=== PATIENT | male | born 1960 | race Caucasian/White ===

== ENCOUNTER 2020-10-18 03:15 | Observation (INO) ==
[2020-10-18] MEDS: Levalbuterol Neb 1.25 MG/3 ML IH SCH ×3 (09:28→22:13)
[2020-10-18] MEDS ORDERED: Perflutren Lipid Microsphere 1.3 ML in 0.9 % Sodium Chloride 8.7 ML IVP PRN (10:39)
[2020-10-18] MEDS ORDERED: Ondansetron 4 MG/2 ML VIAL IVP PRN (10:40)
[2020-10-18] MEDS ORDERED: Naloxone 0.4 MG/ML INJ IVP PRN (10:40)
[2020-10-18] MEDS ORDERED: *HR* Metoprolol 5 MG/5 ML VIAL IVP PRN (10:44)
[2020-10-18] MEDS ORDERED: Isovue-370 500 ML BOTTLE IVP ONE (11:06)
[2020-10-18] MEDS ORDERED: carvediloL 6.25 MG TABLET PO ONE (11:09)
[2020-10-18] MEDS ORDERED: *HR* LORazepam 0.5 MG TABLET PO PRN (11:17)
[2020-10-18 12:14] LABS: BUN/Creatinine Ratio 19 (6-26); Blood Urea Nitrogen 15 mg/dL (8-23); Calcium 9.4 mg/dL (8.6-10.3); Carbon Dioxide 25 mEq/L (23-29); Chloride 106 mEq/L (98-107); Glucose 184 mg/dL (70-105); Osmolality,Calculated 292 (280-300); Potassium 4.2 mEq/L (3.5-5.1); Sodium 138 mEq/L (136-145); Troponin I < 0.03 ng/mL (< 0.04); eGFR For African Americans > 60 (> 60); eGFR For Non-African Americans > 60 (> 60)
[2020-10-18 13:32] LABS: Adenovirus Not Detected (Not Detect); Bordetella Pertussis Not Detected (Not Detect); Chlamydophila pneumoniae Not Detected (Not Detect); Coronavirus 229E Not Detected (Not Detect); Coronavirus HKU1 Not Detected (Not Detect); Coronavirus NL63 Not Detected (Not Detect); Coronavirus OC43 Not Detected (Not Detect); Human Metapneumovirus Not Detected (Not Detect); Human Rhinovirus/Enterovirus Not Detected (Not Detect); Influenza A Subtype 2009 H1 Not Detected (Not Detect); Influenza B Not Detected (Not Detect); Mycoplasma pneumoniae Not Detected (Not Detect); Parainfluenza Virus 1 Not Detected (Not Detect); Parainfluenza Virus 2 Not Detected (Not Detect); Parainfluenza Virus 3 Not Detected (Not Detect); Parainfluenza Virus 4 Not Detected (Not Detect); Respiratory Syncytial Virus Not Detected (Not Detect); SARS-CoV-2 Not Detected (Not Detect)
[2020-10-18] MEDS ORDERED: Fluticasone Propionate Nasal 50 MCG/SPRAY BOTTLE NS PRN (14:54)
[2020-10-18] MEDS ORDERED: Lidocaine 4% CREAM (LMX) 5 GM TP PRN (14:54)
[2020-10-18] MEDS ORDERED: Trolamine Salicylate/Aloe Vera 85 APPL/85 GM TUBE TP PRN (14:54)
[2020-10-18] MEDS ORDERED: Nystatin Ointment 15 GM TUBE TP PRN (15:39)
[2020-10-18] MEDS: MethylPREDNISolone 40 MG/ML VIAL IVP SCH (15:54)
[2020-10-18] MEDS: carvediloL 25 MG TABLET PO SCH (15:54)
[2020-10-18] MEDS: Ipratropium Neb 0.5 MG NEBULIZER IH SCH ×2 (15:57→22:13)
[2020-10-18] MEDS: amLODIPine 5 MG TABLET PO SCH (16:15)
[2020-10-18] MEDS: DilTIAZem SR (12hr) 60 MG CAP.ER.12H PO SCH (20:04)
[2020-10-18] MEDS: Apixaban 5 MG TABLET PO SCH (20:05)
[2020-10-18] MEDS ORDERED: Acetaminophen 325 MG TABLET PO PRN (20:51)
[2020-10-18] MEDS ORDERED: Loratadine 10 MG TABLET PO SCH (21:00)
[2020-10-18] MEDS: Budesonide/Formoterol 80/4.5 1 PUFF INH IH SCH (22:15)
[2020-10-19] MEDS: MethylPREDNISolone 40 MG/ML VIAL IVP SCH ×2 (00:57→09:01)
[2020-10-19 01:22] LABS: Eosinophils % 0.1 %; Hematocrit 41.1 % (37.5-50.1); Hemoglobin 13.9 g/dL (12.9-16.9); Immature Granulocytes % 0.3 % (0-4); Lymphocytes % 13.3 %; Mean Corpuscular HGB Conc 33.8 g/dL (31.6-35.5); Mean Corpuscular Hemoglobin 30.2 pg (28.0-33.3); Mean Corpuscular Volume 89.2 fL (83.0-100.0); Mean Platelet Volume 10.2 fL (9.4-12.4); Monocytes # 0.2 K/mcL (0.0-1.3); Monocytes % 3.1 %; Neutrophils # 6.4 K/mcL (1.6-8.9); Platelet Count 168 K/mcL (140-400); Red Blood Count 4.61 M/mcL (4.19-5.50); Red Cell Distribution Width 12.8 % (11.5-14.5); Segmented Neutrophils % 83.2 %; White Blood Count 7.7 K/mcL (4.3-11.1)
[2020-10-19 01:37] LABS: BUN/Creatinine Ratio 20 (6-26); Blood Urea Nitrogen 17 mg/dL (8-23); Calcium 9.3 mg/dL (8.6-10.3); Carbon Dioxide 25 mEq/L (23-29); Chloride 106 mEq/L (98-107); Glucose 225 mg/dL (70-105); Osmolality,Calculated 293 (280-300); Potassium 4.2 mEq/L (3.5-5.1); Sodium 137 mEq/L (136-145); eGFR For African Americans > 60 (> 60); eGFR For Non-African Americans > 60 (> 60)
[2020-10-19] MEDS: Ipratropium Neb 0.5 MG NEBULIZER IH SCH ×2 (03:22→09:55)
[2020-10-19] MEDS: Levalbuterol Neb 1.25 MG/3 ML IH SCH ×2 (03:22→09:55)
[2020-10-19] MEDS ORDERED: Furosemide 40 MG TABLET PO SCH (09:00)
[2020-10-19] MEDS ORDERED: Cyanocobalamin (B-12) 1,000 MCG TABLET PO SCH (09:00)
[2020-10-19] MEDS ORDERED: NON-FORMULARY MEDICATION 1 EACH EACH (Omega-3/Dha/Epa/Fish Oil [Fish Oil 1,000 Mg Softgel] PO SCH (09:00)
[2020-10-19] MEDS: Apixaban 5 MG TABLET PO SCH (09:01)
[2020-10-19] MEDS: carvediloL 25 MG TABLET PO SCH (09:01)
[2020-10-19] MEDS: amLODIPine 5 MG TABLET PO SCH (09:01)
[2020-10-19] MEDS: DilTIAZem SR (12hr) 60 MG CAP.ER.12H PO SCH (09:02)
[2020-10-19] MEDS: Budesonide/Formoterol 80/4.5 1 PUFF INH IH SCH (10:04)
[2020-10-19 12:16] VITALS: BP 139/98; PULSE 83; TEMP 97.9
[2020-10-19 13:21] VITALS: O2SAT 97
[2020-10-22] MEDS ORDERED: Cholecalciferol (D-3) 1,000 UNIT (25MCG) TABLET PO SCH (15:27)
== END 2020-10-19 14:23 | disposition home or self-care (01) ==
LOC: 2NENU
PROVIDERS: ADMIT Student in an Organized Health Care Education/Training Program; ATTEND Student in an Organized Health Care Education/Training Program

== ENCOUNTER 2021-03-05 19:45 | Inpatient (IN) ==
[2021-03-06] MEDS ORDERED: Ondansetron 4 MG/2 ML VIAL IVP PRN (01:59)
[2021-03-06] MEDS ORDERED: Melatonin 3 MG TABLET PO PRN (01:59)
[2021-03-06] MEDS ORDERED: Naloxone 0.4 MG/ML INJ IVP PRN (01:59)
[2021-03-06] MEDS ORDERED: Perflutren Lipid Microsphere 1.3 ML in 0.9 % Sodium Chloride 8.7 ML IVP PRN (02:10)
[2021-03-06] MEDS ORDERED: *HR* Heparin 5,000 UNIT/ML VIAL IVP PRN (02:11)
[2021-03-06 03:41] LABS: Adenovirus Not Detected (Not Detect); Bordetella Pertussis Not Detected (Not Detect); Chlamydophila pneumoniae Not Detected (Not Detect); Coronavirus 229E Not Detected (Not Detect); Coronavirus HKU1 Not Detected (Not Detect); Coronavirus NL63 Not Detected (Not Detect); Coronavirus OC43 Not Detected (Not Detect); Human Metapneumovirus Not Detected (Not Detect); Human Rhinovirus/Enterovirus Not Detected (Not Detect); Influenza A Subtype 2009 H1 Not Detected (Not Detect); Influenza B Not Detected (Not Detect); Mycoplasma pneumoniae Not Detected (Not Detect); Parainfluenza Virus 1 Not Detected (Not Detect); Parainfluenza Virus 2 Not Detected (Not Detect); Parainfluenza Virus 3 Not Detected (Not Detect); Parainfluenza Virus 4 Not Detected (Not Detect); Respiratory Syncytial Virus Not Detected (Not Detect); SARS-CoV-2 Not Detected (Not Detect)
[2021-03-06 03:41] LABS: Basophils % 0.3 %; Mean Corpuscular Volume 94.8 fL (83.0-100.0); Mean Platelet Volume 9.7 fL (9.4-12.4)
[2021-03-06 03:43] LABS: Eosinophils # 0.2 K/mcL (0.0-0.6); Hematocrit 41.8 % (37.5-50.1); Hemoglobin 13.3 g/dL (12.9-16.9); Immature Granulocytes % 0.4 % (0-4); Immature Platelets 2.6 % (1.1-6.1); Lymphocytes # 1.4 K/mcL (0.6-4.6); Lymphocytes % 19.4 %; Mean Corpuscular HGB Conc 31.8 g/dL (31.6-35.5); Mean Corpuscular Hemoglobin 30.2 pg (28.0-33.3); Monocytes % 13.1 %; Neutrophils # 4.8 K/mcL (1.6-8.9); Platelet Count 136 K/mcL (140-400); Red Blood Count 4.41 M/mcL (4.19-5.50); Red Cell Distribution Width 13.2 % (11.5-14.5); Segmented Neutrophils % 64.8 %; White Blood Count 7.4 K/mcL (4.3-11.1)
[2021-03-06 03:52] LABS: INR 1.2; Prothrombin Time 13.2 Seconds (9.4-12.1)
[2021-03-06] MEDS ORDERED: methylPREDNISolone 125 MG/2 ML VIAL IVP ONE (03:55)
[2021-03-06] MEDS: Ipratropium/Albuterol Neb 3 ML IH SCH ×6 (04:08→23:29)
[2021-03-06 04:18] LABS: Albumin/Globulin Ratio 1.7 (1.1-2.2); Bilirubin,Total 1.7 mg/dL (0.3-1.0); Calcium 8.5 mg/dL (8.6-10.3); Globulin 2.4 g/dL (2.4-3.5); Magnesium 2.2 mg/dL (1.6-2.6); Phosphorous 5.5 mg/dL (2.7-4.5); Potassium 4.3 mEq/L (3.5-5.1); Total Protein 6.4 g/dL (6.4-8.9); Troponin I 0.63 ng/mL (< 0.04)
[2021-03-06 04:26] LABS: Chol/HDL Ratio 3.7 (0-4.9); Thyroid Stimulating Hormone 5.257 mcIU/mL (0.340-5.600)
[2021-03-06] MEDS: Heparin 25,000 UNIT/250 ML 25,000 UNIT/250 ML IV.SOLN IVC SCH (04:28)
[2021-03-06] MEDS: *HR* OxyCODONE/APAP 5/325 TABLET PO PRN (04:28)
[2021-03-06] MEDS: carvediloL 25 MG TABLET PO SCH ×2 (04:28→17:03)
[2021-03-06 04:50] LABS: Estimated Average Glucose 148 mg/dl; Hemoglobin A1C 6.8 %
[2021-03-06] MEDS: Budesonide/Formoterol 160/4.5 1 PUFF INH IH SCH ×2 (07:23→19:53)
[2021-03-06] MEDS: Aspirin 81 MG TAB.CHEW PO SCH (08:07)
[2021-03-06] MEDS: Multivit/Ca/Min/Fe/FA 1 TAB TABLET PO SCH (08:07)
[2021-03-06] MEDS: Chlorhexidine Rinse 15 ML MOUTHWASH MM SCH ×2 (08:07→21:39)
[2021-03-06] MEDS: DilTIAZem CD (24hr) 120 MG CAP.ER.24H PO SCH (12:24)
[2021-03-06] MEDS: *HR* Heparin 5,000 UNIT/ML VIAL IVP PRN (13:33)
[2021-03-06] MEDS ORDERED: Fluticasone Propionate Nasal 50 MCG/SPRAY BOTTLE NS PRN (18:37)
[2021-03-06] MEDS ORDERED: Lidocaine 4% CREAM (LMX) 5 GM TP PRN (18:53)
[2021-03-06] MEDS: Cyanocobalamin (B-12) 1,000 MCG TABLET PO SCH (21:39)
[2021-03-06] MEDS: Loratadine 10 MG TABLET PO SCH (21:39)
[2021-03-06 22:36] LABS: ABG Base Excess -1 mEq/L (-2 to 3); ABG HCO3 31 mEq/L (21-27); ABG Oxygen Saturation 75 % (95-98); ABG PCO2 91 mmHg (35-45); ABG PH 7.14 pH Units (7.32-7.45); ABG PO2 55 mmHg (85-104); ABG TCO2 34 mEq/L (20-26)
[2021-03-06] MEDS ORDERED: Prochlorperazine 10 MG/2 ML VIAL IVP PRN (23:46)
[2021-03-07 01:55] LABS: ABG Base Excess 0 mEq/L (-2 to 3); ABG HCO3 30 mEq/L (21-27); ABG Oxygen Saturation 89 % (95-98); ABG PCO2 74 mmHg (35-45); ABG PH 7.22 pH Units (7.32-7.45); ABG PO2 69 mmHg (85-104); ABG TCO2 33 mEq/L (20-26)
[2021-03-07] MEDS: Heparin 25,000 UNIT/250 ML 25,000 UNIT/250 ML IV.SOLN IVC SCH ×3 (02:00→18:16)
[2021-03-07] MEDS: Ipratropium/Albuterol Neb 3 ML IH SCH ×6 (03:25→23:10)
[2021-03-07] MEDS: Budesonide/Formoterol 160/4.5 1 PUFF INH IH SCH ×2 (07:33→19:55)
[2021-03-07] MEDS: Aspirin 81 MG TAB.CHEW PO SCH (07:59)
[2021-03-07] MEDS: predniSONE 20 MG TABLET PO SCH (07:59)
[2021-03-07] MEDS: DilTIAZem CD (24hr) 120 MG CAP.ER.24H PO SCH (07:59)
[2021-03-07] MEDS: Multivit/Ca/Min/Fe/FA 1 TAB TABLET PO SCH (07:59)
[2021-03-07] MEDS: carvediloL 25 MG TABLET PO SCH ×2 (07:59→18:17)
[2021-03-07] MEDS: Chlorhexidine Rinse 15 ML MOUTHWASH MM SCH ×2 (08:00→19:38)
[2021-03-07] MEDS: Cyanocobalamin (B-12) 1,000 MCG TABLET PO SCH ×2 (08:00→19:38)
[2021-03-07] MEDS ORDERED: amLODIPine 5 MG TABLET PO SCH (09:00)
[2021-03-07] MEDS ORDERED: NON-FORMULARY MEDICATION 1 EACH EACH (Fluticasone/Umeclidin/Vilanter [Trelegy Ellipta 100- IH SCH (09:00)
[2021-03-07] MEDS ORDERED: DilTIAZem CD (24hr) 180 MG CAP.ER.24H PO SCH (09:00)
[2021-03-07 09:08] LABS: Calcium 8.8 mg/dL (8.6-10.3)
[2021-03-07] MEDS: (Omega-3/Dha/Epa/Fish Oil [Fish Oil 1,000 Mg Softgel] PO SCH (10:06)
[2021-03-07] MEDS ORDERED: DilTIAZem CD (24hr) 120 MG CAP.ER.24H PO ONE (12:48)
[2021-03-07] MEDS ORDERED: Perflutren Lipid Microsphere 1.3 ML in 0.9 % Sodium Chloride 8.7 ML IVP PRN (13:47)
[2021-03-07] MEDS: *HR* Heparin 5,000 UNIT/ML VIAL IVP PRN (19:39)
[2021-03-07] MEDS: *HR* OxyCODONE/APAP 5/325 TABLET PO PRN (19:39)
[2021-03-07] MEDS: Loratadine 10 MG TABLET PO SCH (19:42)
[2021-03-08] MEDS: Ipratropium/Albuterol Neb 3 ML IH SCH ×6 (03:58→23:19)
[2021-03-08] MEDS: Heparin 25,000 UNIT/250 ML 25,000 UNIT/250 ML IV.SOLN IVC SCH ×2 (05:09→18:24)
[2021-03-08] MEDS: Aspirin 81 MG TAB.CHEW PO SCH (08:48)
[2021-03-08] MEDS: Chlorhexidine Rinse 15 ML MOUTHWASH MM SCH ×2 (08:48→20:07)
[2021-03-08] MEDS: (Omega-3/Dha/Epa/Fish Oil [Fish Oil 1,000 Mg Softgel] PO SCH (08:49)
[2021-03-08] MEDS: Cyanocobalamin (B-12) 1,000 MCG TABLET PO SCH ×2 (08:49→20:08)
[2021-03-08] MEDS: DilTIAZem CD (24hr) 240 MG CAP.ER.24H PO SCH (08:49)
[2021-03-08] MEDS: Multivit/Ca/Min/Fe/FA 1 TAB TABLET PO SCH (08:49)
[2021-03-08] MEDS: predniSONE 20 MG TABLET PO SCH (08:49)
[2021-03-08] MEDS: carvediloL 25 MG TABLET PO SCH ×2 (08:49→17:29)
[2021-03-08] MEDS: Budesonide/Formoterol 160/4.5 1 PUFF INH IH SCH ×2 (08:59→19:54)
[2021-03-08 11:30] LABS: Calcium 8.9 mg/dL (8.6-10.3); Potassium 4.1 mEq/L (3.5-5.1)
[2021-03-08] MEDS: Loratadine 10 MG TABLET PO SCH (20:07)
[2021-03-09 02:09] LABS: Hematocrit 38.9 % (37.5-50.1); Mean Corpuscular HGB Conc 33.4 g/dL (31.6-35.5); Mean Corpuscular Hemoglobin 30.8 pg (28.0-33.3); Mean Corpuscular Volume 92.2 fL (83.0-100.0); Mean Platelet Volume 10.1 fL (9.4-12.4); Platelet Count 145 K/mcL (140-400); Red Blood Count 4.22 M/mcL (4.19-5.50); Red Cell Distribution Width 12.7 % (11.5-14.5)
[2021-03-09 02:12] LABS: BUN/Creatinine Ratio 22 (6-26); Blood Urea Nitrogen 28 mg/dL (8-23); Calcium 9.1 mg/dL (8.6-10.3); Carbon Dioxide 26 mEq/L (23-29); Chloride 102 mEq/L (98-107); Glucose 172 mg/dL (70-105); Osmolality,Calculated 288 (280-300); Potassium 3.8 mEq/L (3.5-5.1); Sodium 134 mEq/L (136-145); eGFR For African Americans > 60 (> 60); eGFR For Non-African Americans 56 (> 60)
[2021-03-09 02:59] LABS: ABG Base Excess 3 mEq/L (-2 to 3); ABG HCO3 27 mEq/L (21-27); ABG Oxygen Saturation 98 % (95-98); ABG PCO2 41 mmHg (35-45); ABG PH 7.43 pH Units (7.32-7.45); ABG PO2 98 mmHg (85-104); ABG TCO2 28 mEq/L (20-26)
[2021-03-09] MEDS: Ipratropium/Albuterol Neb 3 ML IH SCH ×6 (03:05→23:20)
[2021-03-09] MEDS: Heparin 25,000 UNIT/250 ML 25,000 UNIT/250 ML IV.SOLN IVC SCH (05:33)
[2021-03-09] MEDS: Budesonide/Formoterol 160/4.5 1 PUFF INH IH SCH ×2 (08:03→19:41)
[2021-03-09] MEDS: carvediloL 25 MG TABLET PO SCH ×2 (08:28→15:56)
[2021-03-09] MEDS: Aspirin 81 MG TAB.CHEW PO SCH (08:28)
[2021-03-09] MEDS: predniSONE 20 MG TABLET PO SCH (08:28)
[2021-03-09] MEDS: DilTIAZem CD (24hr) 240 MG CAP.ER.24H PO SCH (08:28)
[2021-03-09] MEDS: Multivit/Ca/Min/Fe/FA 1 TAB TABLET PO SCH (08:28)
[2021-03-09] MEDS: Chlorhexidine Rinse 15 ML MOUTHWASH MM SCH ×2 (08:29→19:50)
[2021-03-09] MEDS: Cyanocobalamin (B-12) 1,000 MCG TABLET PO SCH ×2 (08:29→19:51)
[2021-03-09] MEDS: Apixaban 5 MG TABLET PO SCH ×2 (11:26→19:51)
[2021-03-09] MEDS: Furosemide 20 MG TABLET PO SCH (15:56)
[2021-03-09] MEDS: Loratadine 10 MG TABLET PO SCH (19:50)
[2021-03-09] MEDS: Sacubitril/Valsartan 24/26 MG 1 TABLET PO SCH (19:50)
[2021-03-10 01:34] LABS: BUN/Creatinine Ratio 19 (6-26); Blood Urea Nitrogen 25 mg/dL (8-23); Calcium 9.1 mg/dL (8.6-10.3); Carbon Dioxide 30 mEq/L (23-29); Chloride 103 mEq/L (98-107); Glucose 150 mg/dL (70-105); Osmolality,Calculated 295 (280-300); Potassium 3.4 mEq/L (3.5-5.1); Sodium 139 mEq/L (136-145); eGFR For African Americans > 60 (> 60); eGFR For Non-African Americans 56 (> 60)
[2021-03-10 03:02] VITALS: TEMP 98.6
[2021-03-10] MEDS: Ipratropium/Albuterol Neb 3 ML IH SCH ×3 (03:30→11:11)
[2021-03-10 06:44] VITALS: BP 159/85; PULSE 105
[2021-03-10] MEDS ORDERED: Potassium Chloride Elixir 20 MEQ/15 ML UDC PO ONE (07:27)
[2021-03-10] MEDS: Budesonide/Formoterol 160/4.5 1 PUFF INH IH SCH (07:30)
[2021-03-10 07:33] VITALS: O2SAT 99
[2021-03-10] MEDS: Chlorhexidine Rinse 15 ML MOUTHWASH MM SCH (08:39)
[2021-03-10] MEDS: Sacubitril/Valsartan 24/26 MG 1 TABLET PO SCH (08:39)
[2021-03-10] MEDS: Cyanocobalamin (B-12) 1,000 MCG TABLET PO SCH (08:39)
[2021-03-10] MEDS: predniSONE 20 MG TABLET PO SCH (08:39)
[2021-03-10] MEDS: Aspirin 81 MG TAB.CHEW PO SCH (08:40)
[2021-03-10] MEDS: Apixaban 5 MG TABLET PO SCH (08:40)
[2021-03-10] MEDS: carvediloL 25 MG TABLET PO SCH (08:40)
[2021-03-10] MEDS: Multivit/Ca/Min/Fe/FA 1 TAB TABLET PO SCH (08:40)
[2021-03-10] MEDS: DilTIAZem CD (24hr) 240 MG CAP.ER.24H PO SCH (08:40)
[2021-03-10] MEDS: Furosemide 20 MG TABLET PO SCH (08:40)
== END 2021-03-10 11:37 | disposition home or self-care (01) | DRG 194 ==
LOC: 3BNU → OBSVTOIN 03-06 01:07 → SUATTDRO 03-06 01:07
PROVIDERS: ADMIT Internal Medicine; ATTEND Internal Medicine